=== PATIENT | male | born 1960 | race Caucasian/White ===

== ENCOUNTER 2017-02-05 17:45 | Emergency (ER) | payer OTHER ==
[2017-02-05 18:06] VITALS: BP 135/85
[2017-02-05] MEDS ORDERED: Ondansetron 4 MG Tab.DIS PO ONE (18:29)
[2017-02-05] MEDS ORDERED: Ketorolac 60 MG/2 ML SDV IM ONE (18:29)
--- NOTE | 2017-02-05 18:36 | EDM.PDOC ---
ED HPI GENERAL MEDICAL PROBLEM - General Chief Complaint: Upper Extremity Injury/Pain Stated Complaint: FELL/HURT LEFT SHOULDER Time Seen by Provider: 02/05/17 18:15 Source of Information: Reports: Patient History Limitations: Reports: No Limitations - History of Present Illness INITIAL COMMENTS - FREE TEXT/NARRATIVE: Francis presents to the emergency room tonight after falling while jumping over a deck rail that was 4 to 5' high. He reports landing on his left shoulder. Onset: Today, Sudden Onset Date: 02/05/17 Duration: Other (VISUAL TRAINING AIDE) Quality: Reports: Ache, Dull, Throbbing Severity: Moderate Improves with: Reports: Cold Therapy Worsens with: Reports: Movement Associated Symptoms: Reports: No Other Symptoms Treatments VISUAL TRAINING AIDE: Reports: Cold Therapy, Splint(s) left shoulder Pain Score (Numeric/FACES): 8 - Related Data Allergies Allergy/AdvReac Type Severity Reaction Status Date / Time morphine Allergy Vomiting Verified 02/05/17 18:05 Home Meds: Home Meds Aspirin 81 mg PO DAILY 02/05/17 [History] Empagliflozin [Jardiance] 25 mg PO DAILY 02/05/17 [History] Omeprazole 20 mg PO DAILY 02/05/17 [History] Tadalafil [Cialis] 2.5 mg PO DAILY 02/05/17 [History] metFORMIN [Glucophage] 1,000 mg PO BID 02/05/17 [History] Past Medical History Respiratory History: Reports: Other (See Below) Other Respiratory History: spontaneous pneumos x2 Endocrine/Metabolic History: Reports: Diabetes, Type II Oncologic (Cancer) History: Reports: Prostate - Past Surgical History Respiratory Surgical History: Reports: None Male Surgical History: Reports: Prostatectomy Social & Family History - Tobacco Use Smoking Status *Q: Never Smoker Second Hand Smoke Exposure: No - Recreational Drug Use Recreational Drug Use: No Review of Systems - Review of Systems Review Of Systems: See Below Constitutional: Reports: No Symptoms Eyes: Reports: No Symptoms Ears: Reports: No Symptoms Nose: Reports: No Symptoms Mouth/Throat: Reports: No Symptoms Respiratory: Reports: No Symptoms. Denies: Shortness of Breath, Wheezing, Cough Cardiovascular: Denies: Chest Pain, Edema, Lightheadedness, Palpitations, Syncope GI/Abdominal: Reports: Nausea. Denies: Abdominal Pain, Vomiting Genitourinary: Reports: No Symptoms Musculoskeletal: Reports: Shoulder Pain, Other (left clavicle pain) Skin: Reports: Other (abrasion to left shoulder) Neurological: Denies: Confusion, Dizziness, Headache, Numbness, Tingling, Difficulty Walking, Weakness, Gait Disturbance Psychiatric: Reports: No Symptoms ED EXAM, GENERAL - Physical Exam Exam: See Below Free Text/Narrative:: Francis is an alert, oriented and pleasant 56 year old male presenting with left clavicle and shoulder pain after a fall. He reports he went to jump over a deck railing and landed on his left shoulder. He reports hitting the left side of his head as well. He denies LOC, difficulty seeing, difficulty ambulating or other injury at this time. He arrives in a home-made sling with ice to left shoulder. Exam Limited By: No Limitations General Appearance: Alert, WD/WN, No Apparent Distress Eye Exam: Bilateral Eye: EOMI, Normal Fundi, Normal Inspection, PERRL Ears: Normal External Exam, Normal Canal, Hearing Grossly Normal, Normal TMs Ear Exam: Bilateral Ear: Auricle Normal, Canal Normal, TM normal Nose: Normal Inspection, Normal Mucosa, No Blood Throat/Mouth: Normal Inspection, Normal Lips, Normal Teeth, Normal Gums, Normal Oropharynx, Normal Voice, No Airway Compromise Head: Atraumatic, Normocephalic Neck: Normal Inspection, Supple, Non-Tender, Full Range of Motion. No: Lymphadenopathy (R), Lymphadenopathy (L), Tender Lateral, Tender Midline Respiratory/Chest: No Respiratory Distress, Lungs Clear, Normal Breath Sounds, No Accessory Muscle Use, Chest Non-Tender Cardiovascular: Normal Peripheral Pulses, Regular Rate, Rhythm, No Edema, No Gallop, No Murmur, No Rub Peripheral Pulses: 2+: Carotid (L), Carotid (R), Radial (L), Radial (R) GI/Abdominal: Normal Bowel Sounds, Soft, Non-Tender, No Abnormal Bruit Back Exam: Normal Inspection, Full Range of Motion. No: CVA Tenderness (R), CVA Tenderness (L), Paraspinal Tenderness, Vertebral Tenderness Extremities: Normal Capillary Refill, Other (edema, pain to sternoclavicular joint, left clavicle and acromioclavicular joint. ) Neurological: Alert, Oriented, CN II-XII Intact, Normal Cognition, Normal Gait, No Motor/Sensory Deficits Psychiatric: Normal Affect, Normal Mood Skin Exam: Warm, Dry, Intact, Normal Color, No Rash, Other (Abrasion to left shoulder. ) Lymphatic: No Adenopathy Course - Vital Signs Last Recorded V/S: Last Vital Signs Temp 36.9 C 02/05/17 18:03 Pulse 86 02/05/17 18:03 Resp 18 02/05/17 18:03 BP 135/85 02/05/17 18:03 Pulse Ox 98 02/05/17 18:03 - Orders/Labs/Meds Orders: Active Orders 24 hr Category Date Time Status Clavicle Lt [CR] Stat Exams 02/05/17 18:29 Taken Shoulder Comp Lt [CR] Stat Exams 02/05/17 18:29 Taken Meds: Medications Discontinued Medications Generic Name Dose Route Start Last Admin Trade Name Mary PRN Reason Stop Dose Admin Hydromorphone HCl 1 mg 02/05/17 19:24 Dilaudid IM 02/05/17 19:25 ONETIME ONE Ketorolac Tromethamine 60 mg 02/05/17 18:29 02/05/17 18:38 Toradol IM 02/05/17 18:30 60 mg ONETIME ONE Administration Ondansetron HCl 4 mg 02/05/17 18:29 02/05/17 18:38 Zofran Odt PO 02/05/17 18:30 4 mg ONETIME ONE Administration - Re-Assessments/Exams Free Text/Narrative Re-Assessment/Exam: 02/05/17 18:40 Patient has severe nausea with morphine derivative medications. He will have zofran for nausea and toradol for pain. Departure - Departure Time of Disposition: 19:32 Disposition: Home, Self-Care 01 Condition: Fair Clinical Impression: Fracture of clavicle - Discharge Information Instructions: Clavicle Fracture, [id number] Referrals: PCP,None [Primary Care Provider] - Forms: ED Department Discharge Additional Instructions: You have a closed displaced, distal left clavicle fracture. Use a sling to your left arm or figure 8 brace to assist with comfort. Take naproxen 500mg by mouth twice per day for pain with food to prevent stomach irritation. Take hydrocodone as directed for break through pain as needed. Take zofran 4 mg by mouth as directed for nausea. You have a CD of radiographic images, take these to your provider in [place], obtain an [facility] referral and report to [facility] for additional intervention if needed. Return for issues, concerns or worsening. Watch for signs of constipation. You can buy docusate sodium 100mg by mouth over the counter to take once or twice daily if needed for constipation. - My Orders Last 24 Hours: My Active Orders 02/05/17 18:29 Clavicle Lt [CR] Stat Shoulder Comp Lt [CR] Stat - Assessment/Plan Last 24 Hours: My Active Orders 02/05/17 18:29 Clavicle Lt [CR] Stat Shoulder Comp Lt [CR] Stat Assessment:: Closed displaced, distal left clavicle fracture. Plan: Use a sling left arm or figure 8 brace to assist with comfort. Take naproxen 500mg by mouth twice per day for pain with food to prevent stomach irritation. Take hydrocodone as directed for break through pain as needed. Take zofran 4 mg by mouth as directed for nausea. Patient a CD of radiographic images, take these to your provider in [place], obtain an [facility]TH[facility] referral and report to [facility]TH[facility] for additional intervention if needed on this coming Wednesday February 08, 2017. Return for issues, concerns or worsening. Watch for signs of constipation. He buy docusate sodium 100mg by mouth over the counter to take once or twice daily if needed for constipation.
[2017-02-05] MEDS ORDERED: HYDROmorphone 1 MG/ML Syringe IM ONE (19:24)
--- NOTE | 2017-02-08 09:58 | CR ---
Comminuted left clavicle fracture. Left humerus is intact.
--- NOTE | 2017-02-08 10:01 | CR ---
Comminuted left clavicle fracture with butterfly fragment. Foreshortening. Displacement inferiorly of the distal clavicle.
== END 2017-02-05 19:55 | disposition home or self-care (01) ==
LOC: JP.ED 17:45
DX: S42.032A Displaced fracture of lateral end of left clavicle, initial encounter for closed fracture (principal); E11.9 Type 2 diabetes mellitus without complications; Z79.84 Long term (current) use of oral hypoglycemic drugs; Z79.899 Other long term (current) drug therapy; Z90.79 Acquired absence of other genital organ(s); Z79.82 Long term (current) use of aspirin; Z88.5 Allergy status to narcotic agent; W19.XXXA Unspecified fall, initial encounter
CPT/HCPCS: 73000; 73030; 96372; 99284; A9270; J1170; J1885